=== PATIENT | female | born 1950 | race Caucasian/White ===

== ENCOUNTER 2024-02-21 00:52 | Emergency (ER) | payer OTHER, SELFPAY ==
[2024-02-21 00:54] VITALS: BMI 17.7
[2024-02-21 00:55] VITALS: BP 166/102
[2024-02-21 01:00] VITALS: BP 165/92
--- NOTE | 2024-02-21 01:07 | ED.MUSCINJ ---
HPI-Injury
<GARRY Laws - Last Filed: 02/21/24 03:35>
General
Chief Complaint: Musculo-Skeletal Complaint
Source: patient
Exam Limitations: none
Time Seen by Provider: 02/21/24 01:06
Nursing documentation reviewed up to this point in time: agreed with except (states she came in because the R shoulder pain was intolerable)
History of Present Illness-Injury
Initial Injury comments:
Pt is a 73 yo F who presents to the ED with worsening pain in her R shoulder sequelae to 2 shoulder reconstruction surgeries in June and August of this year. Pt states she has been on morphine 15mg BID and Percocet QID since the surgery but was
recently taken off of these. Pt states she attempted medical marijuana for relief without help. She notes it is difficult for her to move her R arm at all and has very limited mobility in the L arm as well, causing her to stay at home and have a
hard time caring for herself. She states she can feel the metal in her shoulder poking into her back and feels like her R arm is not in place. Pt notes the pain is terrible tonight, which is why she called for EMS. Pt denies loss of strength,
numbness/tingling in b/l UE, fever, chills, chest pain, SOB.
Past History
<GARRY Laws - Last Filed: 02/21/24 03:35>
Past History
ED Past Medical History: Other (Chronic back pain , COPD,)
ED Past Surgical History: Orthopedic
Social History
Tobacco: Former smoker
Alcohol: None
Drug: Marijuana
Personal:
Living: with family
Employment: Not employed
Family History
Family History: Negative Diabetes
Review of Systems
<GARRY Laws - Last Filed: 02/21/24 03:35>
Review of Systems
Allergies reviewed?: Yes
Other source history: ambulance crew
Constitutional: Denies fever, fatigue or chills
Respiratory: Denies trouble breathing
Cardiac: Denies chest pain
ABD/GI: Denies abdominal pain, nausea or vomiting
Musculoskeletal: Reports joint pain
Neurological: Denies headache, weakness or numbness
Musculoskeletal Injury Exam
<GARRY Laws - Last Filed: 02/21/24 03:35>
Musculoskeletal Injury Exam
Right Shoulder:
Pain with Movement?: Severe
Tender to palpation?: Moderate
Soft tissue swelling?: None
Joint effusion?: None
Contusion?: None
Hematoma-local bleeding into tissue?: None
Strain- Sprain- Tear (Connective tissue injury)?: None
Range of motion: Limited
Distal skin color and temperature: normal-warm & good color
Capillary Refill: normal
Normal distal neurovascular exam?: Yes
Peripheral Pulses: brachial (left): 2+, brachial (right): 2+, radial (left): 2+ and radial (right): 2+
Phy Exam
<GARRY Laws - Last Filed: 02/21/24 03:35>
General Physical Exam
General Presentation: well appearing and no apparent distress
General age: appears stated age
General Skin: warm and dry
General Habitus: normal and elderly
General Mental: alert
Injury Course
<GARRY Laws - Last Filed: 02/21/24 03:35>
Orders/Labs/Results
Orders:
Orders
02/21/24 01:27
Cyclobenzaprine HCl [Flexeril] 10 mg PO NOW STA
Ketorolac [Toradol] 15 mg IM NOW STA
02/21/24 01:29
CR Shoulder - Right Min 2 View Urgent
Comment:
Reason For Exam: right shoulder pain
<Samra Hercules MD - Last Filed: 02/21/24 03:32>
Orders/Labs/Results
Orders:
Orders
02/21/24 01:27
Cyclobenzaprine HCl [Flexeril] 10 mg PO NOW STA
Ketorolac [Toradol] 15 mg IM NOW STA
02/21/24 01:29
CR Shoulder - Right Min 2 View Urgent
Comment:
Reason For Exam: right shoulder pain
<GARRY Laws - Last Filed: 02/21/24 03:35>
MDM/Problems Addressed
Differential Diagnosis Includes:
post operative pain
<GARRY Laws - Last Filed: 02/21/24 03:35>
*Critical Care Note
Total Time (30-74mins, 75-104mins- exclusive of procedures): Not Applicable
ED Attending Note
<GARRY Laws - Last Filed: 02/21/24 03:35>
-
Portions of this chart may have been created with voice recognition software.� Occasional wrong word or��sound alike� substitutions may have occurred due to the inherent limitations of voice recognition software.
<Samra Hercules MD - Last Filed: 02/21/24 03:32>
ED Attending Note
Patient seen and examined by attending physician: Yes
I performed the substantive portion of visit, reviewed & personally made and approve the management plan that is documented in note by myself or DESIRE.: Yes
ED Attending Note:
73-year-old female presents emergency department with complaints of bilateral shoulder pain although right much greater than left. She has an extensive history of arthritis as well as surgery on the shoulders. She is under the care of a pain
management doctor and states that she threw out all her pain meds and has run out. She threw them out because family members were accusing her of misusing them. She is due to have them refilled on Friday. She denies other areas of pain. She
denies recent trauma or falls, new numbness or tingling. She denies chest pain, shortness of breath, abdominal pain, headache, neck pain, dizziness, or other complaints. On exam, patient is awake alert.Appears relatively comfortable upon my
entering the room...watching tv. On exam, limited ROM of R shoulder (resistant to passive and active rom), nonspecific ttp R shoulder area without redness/warmth/fluctuance/crepitus etc. NVIT. hand back hand 5/5, sens intact to light touch. Patient
presents to the Emergency Department with __right shoulder pain
Number and Complexity of Problems Addressed at the Encounter
� Chronic conditions affecting care:
� Acute Exacerbation and/or Progression of Chronic Illness:
� Differential Diagnosis includes: Exacerbation of chronic pain, dislocation, fracture, etc.
Amount and/or Complexity of Data to be Reviewed and Analyzed
� I performed an independent evaluation of and my interpretation is:
EKG:
CT:
Xrays: Read by vision, total shoulder replacement no definitive fracture no definitive dislocation however cannot adequately evaluate as there is no scapular Y or axillary view
Laboratory Studies:
Other:
� Review of other/old records reveals:
� Clinical information was obtained by an independent historian:
� Prescriptions/Medications Considered but not given:
� Further testing considered but not performed:
Risk of Complications and/or Morbidity or Mortality of Patient Management
� Social determinants of health affecting care:
� Discussion with other providers (PCP, Hospitalists, Consultants, etc):
� Escalation of care including admission/observation vs risk of discharge considered: Limited x-ray however no dislocation or fracture noted and I strongly suspect that patient does not have a new dislocation, but rather an
exacerbation of her chronic pain for which she ran out of medications.
Discharge Plan
Departure
Patient Disposition: Home (Routine Discharge)
Date of Disposition: 02/21/24
Time of Disposition: 03:26
Patient with high blood pressure during this ER visit?: No
Condition: Good
Discharge Problem:
Post-operative pain
Instructions: Managing pain after surgery, Shoulder pain
Prescriptions:
New
cyclobenzaprine 5 mg tablet
5 mg PO BID PRN (Reason: spasm) Qty: 7 0RF
No Action
amlodipine 5 mg Tablet
5 mg PO DAILY
acetaminophen [Tylenol Extra Strength] 500 mg Tablet
1,000 mg PO Q6H
Patient Comments:
03/02/2023, patient takes this medication Q6H with her muscle relaxer for 10 days.
tiotropium bromide [Spiriva with HandiHaler] 18 mcg Capsule, W/Inhalation Device
1 cap INHALATION R DAILY@1500
duloxetine 60 mg Capsule,Delayed Release(Dr/Ec)
60 mg PO DAILY
cyclobenzaprine 10 mg Tablet
10 mg PO TID Qty: 1 0RF
acetaminophen 325 mg Tablet
650 mg PO Q4HPRN PRN (Reason: mild pain/OLEARY/temp> 100.4F) Qty: 1 0RF
oxycodone 5 mg Tablet
10 mg PO Q4H PRN (Reason: severe pain) Qty: 18 0RF
tramadol 50 MG tablet
50 mg PO Q6HPRN PRN (Reason: pain) Qty: 18 0RF
Referrals:
Mc Badillo MD [Family Provider] - Follow up in 2-3 days
Activity Restrictions/Additional Instructions:
PLEASE RETURN TO EMERGENCY DEPARTMENT OR CALL 911 IF YOU BEGIN EXPERIENCING ANY OF THE FOLLOWING SYMPTOMS:
WORSENING PAIN
CHEST PAIN
ABDOMINAL PAIN
WEAKNESS
NUMBNESS/TINGLING
Interventions
Interventions:
*Risk Screen - Suicide Last Done: 02/21/24 00:54
*General Assessment Last Done: 02/21/24 00:54
*Neglect/Abuse Screening Last Done: 02/21/24 00:54
*ED COVID-19 Vaccine History Last Done: 02/21/24 00:54
ED-Musculoskeletal Assessment Last Done: 02/21/24 01:45
Discharge Date and Time
Print Language: ESTONIAN
[2024-02-21] MEDS: FLEXERIL 10 MG PO (01:43)
[2024-02-21] MEDS: TORADOL 15 MG IM (01:43)
== END 2024-02-21 03:50 | disposition home or self-care (01) ==
LOC: EMR 00:52
PROVIDERS: EMERGENCY PHYSICIAN Emergency Medicine; FAMILY PHYSICIAN Internal Medicine
DX: G89.18 Other acute postprocedural pain (principal); M25.511 Pain in right shoulder; G89.29 Other chronic pain; Z87.891 Personal history of nicotine dependence; J44.9 Chronic obstructive pulmonary disease, unspecified; Z96.611 Presence of right artificial shoulder joint
CPT/HCPCS: 96372; 99284; 73030

== ENCOUNTER 2024-12-10 21:56 | Emergency (ER) | payer OTHER, SELFPAY ==
[2024-12-10 22:04] VITALS: BP 145/88
[2024-12-10 22:05] VITALS: BP 145/88
--- NOTE | 2024-12-10 22:11 | ED.GENMED ---
History of Present Illness
General
Chief Complaint: Breathing Problem
Source: patient
Exam Limitations: none
Time Seen by Provider: 12/10/24 22:10
History of Present Illness
History of Present Illness:
73-year-old female with history of COPD presents with episode of shortness of breath starting at 9 PM tonight. 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 She denies any leg swelling. No chest pain or fever. She received a nebulizer and
route and is feeling better. She does not use oxygen at home. No vomiting. No other complaints at this time
Past History
Past History
ED Past Medical History: Other (Chronic back pain , COPD,)
ED Past Surgical History: Orthopedic
Social History
Tobacco: Former smoker
Alcohol: None
Drug: Marijuana
Personal:
Living: with family
Employment: Not employed
Family History
Family History: Negative Diabetes
Phy Exam
Physical Exam
Physical Exam:
General: Well-appearing female no acute respiratory distress HEENT: Normocephalic atraumatic
Heart: Regular rate and rhythm
Lungs: Diffuse inspiratory expiratory wheeze with prolonged Tory phase
Abdomen is soft nontender
Extremities: No cyanosis
Skin warm no rash
Scores
Heart Failure Risk
Heart Failure Risk Score: Not Applicable
Course
Orders/Labs/Results
Orders:
Orders
12/10/24 22:16
Dexamethasone Sod Phosphate [Decadron] 10 mg IV NOW STA
Ipratropium/Albuterol Sulfate [Duoneb] 3 ml INH R NOW STA
12/10/24 22:17
Electrocardiogram (*1) Urgent
Reason for Study: Shortness of Breath
EKG- Treatment ONCE
CR Chest - 2 Views Urgent
Comment:
Reason For Exam: sob
12/10/24 23:06
Complete Blood Count/With Diff Urgent
Comprehensive Metabolic Panel Urgent
NT-proBNP Urgent
Abnormal Lab Results
12/10/24
23:06
RBC 3.63 L 10^6/uL
(4.20-5.40)
Hgb 10.4 L g/dL
(12.0-16.0)
Hct 32.2 L %
(37.0-47.0)
MCHC 32.3 L g/dL
(33.0-37.0)
Absolute Lymphs (auto) 1.1 L 10^3/uL
(1.2-3.4)
Absolute Monos (auto) 0.7 H 10^3/uL
(0.1-0.6)
Neutrophils % 77.5 H %
(42.2-75.2)
Lymphocytes % 13.0 L %
(20.5-51.1)
12/10/24 23:06
Vital Signs
Initial and Last Documented VS:
Initial Vital Signs
Pulse Resp BP Pulse Ox
94 24 145/88 100
12/10/24 22:04 12/10/24 22:04 12/10/24 22:04 12/10/24 22:04
Last Documented Vital Signs
Pulse Resp BP Pulse Ox
94 24 145/88 100
12/10/24 22:04 12/10/24 22:04 12/10/24 22:04 12/10/24 22:19
MDM/Problems Addressed
Differential Diagnosis Includes:
Patient with respiratory difficulty starting tonight. Issue COPD. Likely COPD flare. Will check x-ray chest to evaluate for underlying pneumonia. BNP pending. Will give nebs and Decadron.
*Pulse Oximetry
SaO2: 100
Oxygen Mode of Delivery: Aerosol mask
Patient hypoxic: no
*Critical Care Note
Total Time (30-74mins, 75-104mins- exclusive of procedures): Not Applicable
Update Note
Update Note:
Patient received nebulizer here and is feeling better. She declined x-ray. She does not want to wait for any blood work. She is concerned about getting home to her demented . She is not hypoxic. She is not in respiratory distress. I do
suspect COPD flare. Will prescribe prednisone for her to take over the next several days.
ED Attending Note
-
Portions of this chart may have been created with voice recognition software.� Occasional wrong word or��sound alike� substitutions may have occurred due to the inherent limitations of voice recognition software.
Discharge Plan
Departure
Patient Disposition: Home (Routine Discharge)
Date of Disposition: 12/10/24
Time of Disposition: 23:17
Patient with high blood pressure during this ER visit?: No
Discharge Problem:
Acute exacerbation of chronic obstructive pulmonary disease
Instructions: Exacerbation of COPD (DC)
Prescriptions:
New
prednisone 20 mg tablet
40 mg PO DAILY 5 Days Qty: 10 0RF
No Action
amlodipine 5 mg Tablet
5 mg PO DAILY
acetaminophen [Tylenol Extra Strength] 500 mg Tablet
1,000 mg PO Q6H
Patient Comments:
03/02/2023, patient takes this medication Q6H with her muscle relaxer for 10 days.
tiotropium bromide [Spiriva with HandiHaler] 18 mcg Capsule, W/Inhalation Device
1 cap INHALATION R DAILY@1500
duloxetine 60 mg Capsule,Delayed Release(Dr/Ec)
60 mg PO DAILY
cyclobenzaprine 10 mg Tablet
10 mg PO TID Qty: 1 0RF
acetaminophen 325 mg Tablet
650 mg PO Q4HPRN PRN (Reason: mild pain/OLEARY/temp> 100.4F) Qty: 1 0RF
oxycodone 5 mg Tablet
10 mg PO Q4H PRN (Reason: severe pain) Qty: 18 0RF
tramadol 50 MG tablet
50 mg PO Q6HPRN PRN (Reason: pain) Qty: 18 0RF
cyclobenzaprine 5 mg tablet
5 mg PO BID PRN (Reason: spasm) Qty: 7 0RF
Referrals:
Mc Badillo MD [Family Provider, Internal Medicine]
Activity Restrictions/Additional Instructions:
Continue with nebulizer and breathing treatment at home. Use steroid as directed. Return if worse otherwise
Interventions
Interventions:
*Risk Screen - Suicide Last Done: 12/10/24 22:04
*General Assessment Last Done: 12/10/24 22:04
*Neglect/Abuse Screening Last Done: 12/10/24 22:04
Discharge Date and Time
Print Language: BELIZEAN
[2024-12-10] MEDS: DECADRON 10 MG IV (22:47)
[2024-12-10] MEDS: DUONEB 3 ML INH (22:48)
[2024-12-10 23:00] VITALS: BP 128/75
[2024-12-10 23:16] LABS: Hematocrit 32.2 % (37.0-47.0); Hemoglobin 10.4 g/dL (12.0-16.0); Mean Corp Hgb Conc. 32.3 g/dL (33.0-37.0); Mean Corpuscular Volume 88.7 fL (81.0-99.0); Nucleated Red Blood Cells % 0 %; Platelet Count 227 10^3/uL (130-400); Red Cell Dist. Width 13.2 % (11.5-14.5)
[2024-12-10 23:42] LABS: ALT (SGPT) 22 U/L (0-35); AST (SGOT) 24 U/L (14-36); Albumin 3.9 g/dl (3.5-5.0); Alkaline Phosphatase 52 U/L (38-126); Blood Urea Nitrogen 26 mg/dl (7-17); Calcium 8.8 mg/dl (8.4-10.2); Carbon Dioxide 27 mmol/L (22-30); Chloride 106 mmol/L (98-107); Glucose 93 mg/dl (70-99); Potassium 4.5 mmol/L (3.5-5.1); Sodium 138 mmol/L (135-145); Total Protein 6.2 g/dl (6.3-8.2); eGFR > 60.00
== END 2024-12-10 23:47 | disposition home or self-care (01) ==
LOC: EMR 21:56
PROVIDERS: Physician Assistant; EMERGENCY PHYSICIAN Student in an Organized Health Care Education/Training Program; FAMILY PHYSICIAN Internal Medicine
DX: J44.1 Chronic obstructive pulmonary disease with (acute) exacerbation (principal); M54.9 Dorsalgia, unspecified; G89.29 Other chronic pain; Z87.891 Personal history of nicotine dependence
CPT/HCPCS: 99284; 96374; 94640; 80053; 83880; 85025; 93005